=== PATIENT | male | born 2000 | race Caucasian/White ===

== ENCOUNTER 2023-11-21 09:45 | Outpatient (CLI) | payer OTHER ==
--- NOTE | 2023-11-21 22:08 | XRAY Report ---
PROCEDURE: Clavicle RT INDICATIONS: PAIN IN RIGHT SHOULDER TECHNIQUE: 2 views of the clavicle were acquired. COMPARISON: None. FINDINGS: Bones: No fractures or dislocations. No suspicious bony lesions. Soft tissues: No suspicious soft tissue calcifications or masses. IMPRESSION: No acute right clavicular fracture or dislocation. No gross soft tissue abnormalities. Reviewed by: Dhaval Marion MD on 11/21/2023 10:06 PM PDT Approved by: Dhaval Marion MD on 11/21/2023 10:06 PM PDT Station ID: [id number]
== END 2023-11-21 10:00 | disposition home or self-care (01) ==
LOC: DI.N 09:45
PROVIDERS: ATTEND Nurse Practitioner
DX: M25.511 Pain in right shoulder (principal)